=== PATIENT | female | born 1965 | race Caucasian/White ===

== ENCOUNTER 2023-06-07 12:06 | Outpatient (RCR) | payer BC, SELFPAY | END 2023-06-07 23:59 | disposition home or self-care (01) | LOC: RPT 12:06 | PROVIDERS: ATTENDING PHYSICIAN Orthopaedic Surgery; FAMILY PHYSICIAN Family Medicine | DX: Z47.1 Aftercare following joint replacement surgery (principal); Z96.652 Presence of left artificial knee joint; Z73.6 Limitation of activities due to disability; R26.2 Difficulty in walking, not elsewhere classified | CPT/HCPCS: 97110; 97112; 97140; 97530 ==

== ENCOUNTER 2023-07-05 18:21 | Outpatient (RCR) | payer BC, SELFPAY | END 2023-07-09 07:52 | disposition home or self-care (01) | LOC: RPT 18:21 | PROVIDERS: ATTENDING PHYSICIAN Orthopaedic Surgery; FAMILY PHYSICIAN Family Medicine | DX: Z47.1 Aftercare following joint replacement surgery (principal); Z73.6 Limitation of activities due to disability; R26.2 Difficulty in walking, not elsewhere classified; M62.81 Muscle weakness (generalized); R26.89 Other abnormalities of gait and mobility; M25.562 Pain in left knee; Z96.652 Presence of left artificial knee joint | CPT/HCPCS: 97110; 97530 ==

== ENCOUNTER → 2024-01-17 10:36 | Outpatient (REF) | payer BC, SELFPAY | LOC: WDC 10:36 | PROVIDERS: ATTENDING PHYSICIAN Family Medicine | DX: Z12.31 Encounter for screening mammogram for malignant neoplasm of breast (principal) | CPT/HCPCS: 77063; 77067 ==

== ENCOUNTER → 2024-02-08 11:24 | Outpatient (REF) | payer BC, SELFPAY ==
[2024-02-08 11:44] LABS: % Basophils 0.7 % (0-2); % Immature Granulocytes 0.2 % (0-0.5); % Lymphocytes 31.1 % (20.5-51.1); % Monocytes 10.4 % (1.7-9.3); % Neutrophils 55.6 % (42.2-75.2); Absolute Eosinophils 0.1 10^3/uL (0-0.7); Absolute Lymphocytes 1.7 10^3/uL (1.2-3.4); Absolute Monocytes 0.6 10^3/uL (0.1-0.6); Absolute Neutrophils 3.1 10^3/uL (1.4-6.5); Hematocrit 36.2 % (37.0-47.0); Hemoglobin 12.2 g/dL (12.0-16.0); Mean Corp Hgb Conc. 33.7 g/dL (33.0-37.0); Mean Corpuscular Hgb 30.7 pg (27.0-31.0); Mean Corpuscular Volume 91.2 fL (81.0-99.0); Mean Platelet Volume 9.2 fL (7.4-10.4); Nucleated Red Blood Cells % 0 %; Platelet Count 257 10^3/uL (130-400); Red Blood Cell Count 3.97 10^6/uL (4.20-5.40); Red Cell Dist. Width 13.2 % (11.5-14.5); White Blood Cell Count 5.6 10^3/uL (4.8-10.8)
[2024-02-08 12:02] LABS: ALT (SGPT) 19 U/L (0-35); AST (SGOT) 29 U/L (14-36); Albumin 4.4 g/dl (3.5-5.0); Alkaline Phosphatase 71 U/L (38-126); Blood Urea Nitrogen 13 mg/dl (7-17); Calcium 9.3 mg/dl (8.4-10.2); Carbon Dioxide 25 mmol/L (22-30); Chloride 102 mmol/L (98-107); Glucose 101 mg/dl (70-99); HDL Cholesterol 56 mg/dl; Potassium 4.5 mmol/L (3.5-5.1); Sodium 137 mmol/L (135-145); Total Bilirubin 0.5 mg/dl (0.2-1.3); Total Protein 6.8 g/dl (6.3-8.2); Triglyceride 50 mg/dl (10-149); Very Low Density Lipoprotein 10 mg/dl (0-30); eGFR > 60.00
[2024-02-08 12:10] LABS: LDL Cholesterol, Calculated 131 mg/dl; Total Cholesterol 197 mg/dl (50-199)
== END ==
LOC: REG 11:24
PROVIDERS: ATTENDING PHYSICIAN Family Medicine
DX: Z00.00 Encounter for general adult medical examination without abnormal findings (principal)
CPT/HCPCS: 80053; 80061; 85025

== ENCOUNTER → 2024-08-12 13:08 | Outpatient (REF) | payer BC, SELFPAY | LOC: CLAB 13:08 | PROVIDERS: Pathology Anatomic Pathology & Clinical Pathology; ATTENDING PHYSICIAN Dermatology | DX: D48.5 Neoplasm of uncertain behavior of skin (principal) | CPT/HCPCS: 88305 ==

== ENCOUNTER → 2025-02-20 10:38 | Outpatient (REF) | payer BC, SELFPAY ==
[2025-02-20 11:20] LABS: Hematocrit 38.1 % (37.0-47.0); Hemoglobin 12.8 g/dL (12.0-16.0); Mean Corp Hgb Conc. 33.6 g/dL (33.0-37.0); Mean Corpuscular Volume 91.4 fL (81.0-99.0); Nucleated Red Blood Cells % 0 %; Platelet Count 288 10^3/uL (130-400); Red Cell Dist. Width 12.7 % (11.5-14.5)
[2025-02-20 11:33] LABS: ALT (SGPT) 31 U/L (0-35); AST (SGOT) 34 U/L (14-36); Albumin 4.5 g/dl (3.5-5.0); Alkaline Phosphatase 65 U/L (38-126); Blood Urea Nitrogen 14 mg/dl (7-17); Calcium 9.5 mg/dl (8.4-10.2); Carbon Dioxide 25 mmol/L (22-30); Chloride 102 mmol/L (98-107); Glucose 91 mg/dl (70-99); Potassium 4.8 mmol/L (3.5-5.1); Sodium 134 mmol/L (135-145); Total Protein 7.2 g/dl (6.3-8.2); Very Low Density Lipoprotein 8 mg/dl (0-30); eGFR > 60.00
[2025-02-20 11:43] LABS: HDL Cholesterol 112 mg/dl; LDL Cholesterol, Calculated 73 mg/dl
== END ==
LOC: REG 10:38
PROVIDERS: ATTENDING PHYSICIAN Family Medicine
DX: E03.9 Hypothyroidism, unspecified (principal); E66.9 Obesity, unspecified; Z00.00 Encounter for general adult medical examination without abnormal findings
CPT/HCPCS: 36415; 80053; 80061; 84443; 85025

== ENCOUNTER → 2025-02-23 11:08 | Outpatient (REF) | payer BC, SELFPAY | LOC: WDC 11:08 | PROVIDERS: ATTENDING PHYSICIAN Family Medicine | DX: Z12.31 Encounter for screening mammogram for malignant neoplasm of breast (principal) | CPT/HCPCS: 77063; 77067 ==

== ENCOUNTER 2025-04-04 23:28 | Emergency (ER) | payer BC, SELFPAY ==
[2025-04-04 23:32] VITALS: BP 147/98
--- NOTE | 2025-04-05 00:11 | ED.GENMED ---
History of Present Illness
<Sundeep Flores Jr., PA-C - Last Filed: 04/05/25 00:56>
General
Chief Complaint: Fall
Source: patient
Exam Limitations: none
Time Seen by Provider: 04/05/25 00:07
Nursing documentation reviewed up to this point in time: agreed with
History of Present Illness
History of Present Illness:
Yeah 59-year-old female presenting to the emergency department today with concerns of trip and fall injuring her right wrist. Immediately felt significant pain to the right wrist no obvious deformity. No head trauma no loss of consciousness not on
blood thinner.
Past History
<Sundeep Flores Jr., PA-C - Last Filed: 04/05/25 00:56>
Past History
ED Past Medical History: Other (Depression)
Social History
Tobacco: Non-smoker
Alcohol: None
Drug: None
Personal:
Living: with family
Employment: Employed
Review of Systems
<Sundeep Flores Jr., PA-C - Last Filed: 04/05/25 00:56>
Review of Systems
Allergies reviewed?: Yes
All Other Systems: ROS reviewed and negative except as documented in HPI and ROS
Phy Exam
<ANN Carrion Jr. Last Filed: 04/05/25 00:56>
Physical Exam
Physical Exam:
GENERAL: Alert , in no apparent distress
EYE: pupils equal and reactive
NECK: Supple, no significant adenopathy.
ENT: o/p clr, mmm.
CARDIAC: Regular rate and rhythm .
LUNGS: Clear breath sounds bilaterally, no acute respiratory distress, no wheezes/rales/rhonchi
ABDOMEN: Soft, without focal tenderness, no r/g, no cvat
NEUROLOGICAL: Alert and oriented, no focal neuro deficits
SKIN: Warm and dry, skin intact.
MUSCULOSKELETAL: Tenderness to the right distal forearm and wrist region increased discomfort with movement of the right wrist. No obvious deformity. 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
PSYCH: Normal and appropriate interaction.
Course
<Sundeep Flores Jr. PADesiC - Last Filed: 04/05/25 00:56>
Orders/Labs/Results
Orders:
Orders
04/04/25 23:36
Wrist, Right 3 Views [CR Wrist - Right Min 3 Views] Urgent
Comment:
Reason For Exam: injury
04/05/25 00:10
Ketorolac [Toradol] 30 mg IM NOW STA
Vital Signs
Initial and Last Documented VS:
Initial Vital Signs
Temp Pulse Resp BP Pulse Ox
97.9 F 71 20 147/98 100
04/04/25 23:32 04/04/25 23:32 04/04/25 23:32 04/04/25 23:32 04/04/25 23:32
Last Documented Vital Signs
Temp Pulse Resp BP Pulse Ox
97.9 F 71 20 147/98 100
04/04/25 23:32 04/04/25 23:32 04/04/25 23:32 04/04/25 23:32 04/05/25 00:11
<Daniel Urbina DO - Last Filed: 04/05/25 00:46>
Orders/Labs/Results
Orders:
Orders
04/04/25 23:36
Wrist, Right 3 Views [CR Wrist - Right Min 3 Views] Urgent
Comment:
Reason For Exam: injury
04/05/25 00:10
Ketorolac [Toradol] 30 mg IM NOW STA
Vital Signs
Initial and Last Documented VS:
Initial Vital Signs
Temp Pulse Resp BP Pulse Ox
97.9 F 71 20 147/98 100
04/04/25 23:32 04/04/25 23:32 04/04/25 23:32 04/04/25 23:32 04/04/25 23:32
Last Documented Vital Signs
Temp Pulse Resp BP Pulse Ox
97.9 F 71 20 147/98 100
04/04/25 23:32 04/04/25 23:32 04/04/25 23:32 04/04/25 23:32 04/05/25 00:11
Procedures
<Sundeep Flores Jr., PA-C - Last Filed: 04/05/25 00:56>
Splinting/Sling Placement
Right Wrist:
Procedure completed by: Myself
Pre-splint extermity exam: good alignment
Type of splint: sugar-tong
Splint material: fiberglass
Splint checked by provider?: Yes
Type of sling: sling fitted
Normal distal neurovascular exam?: Yes
<Sundeep Flores Jr., PA-C - Last Filed: 04/05/25 00:56>
MDM/Problems Addressed
MDM/Problems Addressed:
59-year-old female presenting after falling while walking her dog landing directly on her right wrist. Patient found to have a distal radius fracture. No additional fracture seen on x-ray. No additional trauma or head trauma. Not on blood
thinners. Neuro vascularly intact. Patient was splinted otherwise will follow-up closely with orthopedics.
<Sundeep Flores Jr., PA-C - Last Filed: 04/05/25 00:56>
*Pulse Oximetry
SaO2: 100
Oxygen Mode of Delivery: Room air
Patient hypoxic: no (100)
*Critical Care Note
Total Time (30-74mins, 75-104mins- exclusive of procedures): Not Applicable
ED Attending Note
<Sundeep Flores Jr., PA-C - Last Filed: 04/05/25 00:56>
-
Portions of this chart may have been created with voice recognition software.� Occasional wrong word or��sound alike� substitutions may have occurred due to the inherent limitations of voice recognition software.
<Daniel Urbina, DO - Last Filed: 04/05/25 00:46>
ED Attending Note
Patient seen and examined by attending physician: Yes
ED Attending Note:
I have reviewed and agree with history and treatment plan by Ed Mark. My exam revealed 59-year-old female with right wrist swelling tenderness. Neurovascularly intact. No other injuries. X-ray reveals right distal radius fracture extending to
the radiocarpal joint with mild dorsal displacement of the fracture fragment. Will splint and follow-up with orthopedics.
Discharge Plan
Departure
Patient Disposition: Home (Routine Discharge)
Date of Disposition: 04/05/25
Time of Disposition: 00:55
Patient with high blood pressure during this ER visit?: No
Condition: Good
Covid-19: Not Applicable
Discharge Problem:
Distal radial fracture
Instructions: Wrist Fracture (DC)
Prescriptions:
No Action
cetirizine [Zyrtec] 10 mg Tablet
10 mg PO DAILY
levothyroxine [Synthroid] 75 mcg Tablet
75 mcg PO DAILY
atomoxetine [Strattera] 40 mg Capsule
40 mg PO DAILY
bupropion HCl [Wellbutrin XL] 150 mg Tablet Extended Release 24 Hr
150 mg PO DAILY
mupirocin 2 % ointment
1 applic topical BID Qty: 1 0RF
Patient Comments:
started Sunday AM
famotidine 20 mg tablet
20 mg PO HS Qty: 30 0RF
Rx Instructions:
post-op
dexamethasone 4 mg tablet
4 mg PO BID Qty: 6 0RF
Rx Instructions:
take with food
post-op use only
meloxicam 15 mg tablet
15 mg PO DAILY Qty: 14 0RF
Rx Instructions:
take with food
post-op
gabapentin 300 mg capsule
300 mg PO HS Qty: 10 0RF
ondansetron [ondansetron] 4 mg tablet,disintegrating
4 mg PO Q6H PRN (Reason: n/v) Qty: 15 0RF
Rx Instructions:
take 1/2h b/f pain med if recurrent nausea
allow to dissolve in mouth w/o water
oxycodone 5 mg tablet
5 - 10 mg PO Q6HPRN PRN (Reason: 1 tab moderate-2 tabs severe pain) Qty: 30 0RF
Rx Instructions:
Dx surgery
ongoing therapy
Post-op use
magnesium 200 mg Tablet
400 mg PO DAILY PRN (Reason: sleep)
aspirin 325 mg tablet
325 mg PO DAILY Qty: 30 0RF
Rx Instructions:
Take daily x4 weeks for blood clot prevention.
docusate sodium [Colace] 100 mg capsule
100 mg PO BID Qty: 30 0RF
sennosides [senna] 8.6 mg tablet
17.2 mg PO BID Qty: 30 0RF
temazepam [Restoril] 7.5 mg Capsule
7.5 mg PO HS PRN (Reason: SLEEP) Qty: 0 0RF
Rx Instructions:
Caution with Oxycodone and Gabapentin - can cause excessive drowsiness.
acetaminophen 500 mg Capsule
1,000 mg PO Q6H Qty: 60 0RF
Rx Instructions:
DO NOT exceed >4000 mg daily.
Referrals:
Giancarlo Souza MD [Active, Orthopedics] - Follow up in 5-7 days
Activity Restrictions/Additional Instructions:
You came to the emergency department today with concerns of a wrist fracture. You are found have a distal radius fracture. Please leave the splint in place until follow-up with orthopedics this week. Return for any worsening, new or concerning
symptoms.
Interventions
Interventions:
*Risk Screen - Suicide Last Done: 04/04/25 23:32
*General Assessment Last Done: 04/04/25 23:32
*Neglect/Abuse Screening Last Done: 04/04/25 23:32
*ED- Fall Risk Assessment Last Done: 04/04/25 23:32
*ED COVID-19 Vaccine History Last Done: 04/04/25 23:32
*ED Influenza Vaccine History Last Done: 04/04/25 23:32
ED-Musculoskeletal Assessment Last Done: 04/05/25 00:19
ED- Neurological Assessment Last Done: 04/05/25 00:19
ED-Skin Assessment Last Done: 04/05/25 00:19
Discharge Date and Time
Print Language: ESTONIAN
[2025-04-05] MEDS: TORADOL 30 MG IM (00:20)
== END 2025-04-05 01:10 | disposition home or self-care (01) ==
LOC: EMR 23:28
PROVIDERS: EMERGENCY PHYSICIAN Emergency Medicine; FAMILY PHYSICIAN Family Medicine
DX: S52.591A Other fractures of lower end of right radius, initial encounter for closed fracture (principal); W01.0XXA Fall on same level from slipping, tripping and stumbling without subsequent striking against object, initial encounter
CPT/HCPCS: 29125; 99284; 96372; 73110

== ENCOUNTER 2025-06-16 19:00 | Outpatient (RCR) | payer BC, SELFPAY | END 2025-06-16 23:59 | disposition home or self-care (01) | LOC: ROT 19:00 | PROVIDERS: ATTENDING PHYSICIAN Orthopaedic Surgery; FAMILY PHYSICIAN Family Medicine | DX: S52.571D Other intraarticular fracture of lower end of right radius, subsequent encounter for closed fracture with routine healing (principal); Z73.6 Limitation of activities due to disability; M62.81 Muscle weakness (generalized); W18.39XD Other fall on same level, subsequent encounter | CPT/HCPCS: 97018; 97110; 97140; 97166; 97535 ==